=== PATIENT | female | born 1975 | race Caucasian/White ===

== ENCOUNTER 2016-05-31 20:35 | Emergency (ER) | payer OTHER ==
[2016-05-31 20:43] VITALS: BP 165/77; PULSE 93; TEMP 98.3; BMI 39.4
[2016-05-31 20:58] LABS: BASOPHIL 0.4 % (0-2.0); EOSINOPHIL 1.4 % (0-4.5); MCH 29.7 pg (25.7-33.7); MCHC 34.2 g/dl (32.0-36.0); MEAN PLT VOLUME 8.4 fl (7.5-11.1); NEUTROPHILS 70.4 % (42.8-82.8); PLATELET COUNT 248 K/MM3 (134-434); RDW 14.1 % (11.6-15.6); WHITE BLOOD COUNT 9.7 K/mm3 (4.0-10.0)
[2016-05-31 21:03] LABS: URINE APPEARANCE CLEAR; URINE BILIRUBIN NEGATIVE (NEGATIVE); URINE COLOR STRAW; URINE GLUCOSE (UA) NEGATIVE (NEGATIVE); URINE KETONE NEGATIVE (NEGATIVE); URINE LEUK ESTERASE NEGATIVE (NEGATIVE); URINE NITRITE NEGATIVE (NEGATIVE); URINE PROTEIN NEGATIVE (NEGATIVE); URINE UROBILINOGEN NEGATIVE E.U./dl (0.2-1.0)
[2016-05-31 21:10] LABS: URINE BLOOD 3+ (NEGATIVE)
[2016-05-31 21:12] LABS: URINE MUCUS RARE; URINE RBC 33 /hpf (0-3); URINE WBC 5 /hpf (3-5)
[2016-05-31 21:24] LABS: CALCIUM 8.6 mg/dL (8.5-10.1); COCKROFT - GAULT 251.2515; CREATININE 0.5 mg/dL (0.55-1.02)
--- NOTE | 2016-05-31 22:19 | PDOC ---
History of Present Illness - History of Present Illness Initial Comments: 05/31/16 22:31 The patient is a 40 year old 13 week female with a past medical hx of who presents to the ED complaining of vaginal bleeding for a few hours. She reports associated lower abdominal pain. The patient reports she noticed some blood when she was using the bathroom. She describes the bleeding as spotting and denies a copious amount of blood. The patient reports she was seen in [facility] ED 20 days ago for the same complaint. She was fully worked up there and everything was unremarkable. She states she had vaginal bleeding like this in one of her previous pregnancies and the baby was fine. Her next OB appointment is on the 23 of June. The patient denies nausea, vomiting, diarrhea, chest pain, SOB. OB: Dr. Madden <Agustina Olvera - Last Filed: 06/01/16 00:24> - General History Source: Patient Exam Limitations: No Limitations <Hilda Hermosillo - Last Filed: 06/06/16 16:58> - General Chief Complaint: Vaginal Bleeding Stated Complaint: 13WKS/VAGINAL BLEEDING Time Seen by Provider: 05/31/16 20:38 Past History <Agustina Olvera - Last Filed: 06/01/16 00:24> - Psycho/Social/Smoking Cessation Hx Suicidal Ideation: No Smoking History: Never smoked Have you smoked in the past 12 months: No Information on smoking cessation initiated: No Hx Alcohol Use: No Drug/Substance Use Hx: No <Hilda Hermosillo - Last Filed: 06/06/16 16:58> - Past Medical History Allergies/Adverse Reactions: Allergies Allergy/AdvReac Type Severity Reaction Status Date / Time No Known Allergies Allergy Verified 05/31/16 20:41 Home Medications: Ambulatory Orders 19 Tablet 1 cap PO DAILY 05/31/16 Review of Systems - Review of Systems Able to Perform ROS?: Yes Comments:: 05/31/16 22:32 GENERAL/CONSTITUTIONAL: No: fever, chills, weakness, loss of appetite. HEAD, EYES, EARS, NOSE AND THROAT: No: change in vision, ear pain, discharge, sore throat, throat swelling. CARDIOVASCULAR: No: chest pain, lightheadedness, palpitations, syncope RESPIRATORY: No: cough, shortness of breath, wheezing, hemoptysis, stridor. GASTROINTESTINAL:+Abdominal pain. No: nausea, vomiting, diarrhea, rectal bleeding, constipation. GENITOURINARY: +Vaginal bleeding. No: dysuria, hematuria, frequency, urgency, flank pain. MUSCULOSKELETAL: No: back pain, neck pain, joint pain, muscle swelling or pain SKIN: No: lesions, pallor, rash or easy bruising. NEUROLOGIC: No: headache, vertigo, paresthesias, weakness ENDOCRINE: No: unexplained weight gain or loss HEMATOLOGIC/LYMPHATIC: No: anemia, easy bleeding, swelling nodes <Agustina Olvera - Last Filed: 06/01/16 00:24> *Physical Exam - Vital Signs Last Vital Signs Temp Pulse Resp BP Pulse Ox 98.3 F 93 H 20 165/77 96 05/31/16 20:41 05/31/16 20:41 05/31/16 20:41 05/31/16 20:41 05/31/16 20:41 - Physical Exam Comments: 05/31/16 22:32 GENERAL: The patient is in no acute distress. HEAD: Normal with no signs of trauma. EYES: PERRLA, EOMI, sclera anicteric, conjunctiva clear. ENT: Ears normal, nares patent, oropharynx clear without exudates. Moist mucous membranes. NECK: Normal range of motion, supple without lymphadenopathy, JVD, or masses. LUNGS: Breath sounds equal, clear to auscultation bilaterally. No wheezes, and no crackles. HEART:Regular rate and rhythm, normal S1 and S2 without murmur, rub or gallop. ABDOMEN: Soft, nontender, normoactive bowel sounds. No guarding, no rebound. PELVIC: OS closed, scant blood in vaginal vault, no adnexal tenderness or fullness. EXTREMITIES: Normal range of motion, no edema. No clubbing or cyanosis. No erythema, or tenderness. NEUROLOGICAL: Cranial nerves II through XII grossly intact. Normal speech. No focal neurological deficits. MUSCULOSKELETAL: Back nontender to palpation, no CVA tenderness SKIN: Warm, Dry, normal turgor, no rashes or lesions noted. <Agustina Olvera - Last Filed: 06/01/16 00:24> - Vital Signs Last Vital Signs Temp Pulse Resp BP Pulse Ox 98.3 F 93 H 20 165/77 96 05/31/16 20:41 05/31/16 20:41 05/31/16 20:41 05/31/16 20:41 05/31/16 20:41 <Hilda Hermosillo - Last Filed: 06/06/16 16:58> ED Treatment Course - LABORATORY CBC & Chemistry Diagram: 05/31/16 20:50 05/31/16 20:50 - ADDITIONAL ORDERS Additional order review: Laboratory Results 05/31/16 05/31/16 05/31/16 20:50 20:50 20:50 Sodium 139 Cancelled Potassium 3.9 Cancelled Chloride 107 Cancelled Carbon Dioxide 22 Cancelled Anion Gap 10 Cancelled BUN 12 Cancelled Creatinine 0.5 L Cancelled Random Glucose 99 Cancelled Calcium 8.6 Cancelled Beta HCG, Quant 90080.3 Urine Color Urine Appearance Urine pH Ur Specific Lowes Urine Protein Urine Glucose (UA) Urine Ketones Urine Blood Urine Nitrite Urine Bilirubin Urine Urobilinogen Ur Leukocyte Esterase Urine RBC Urine WBC Ur Epithelial Cells Urine Mucus Blood Type Cancelled Antibody Screen Cancelled Spec Expiration Date Cancelled 05/31/16 20:50 Sodium Potassium Chloride Carbon Dioxide Anion Gap BUN Creatinine Random Glucose Calcium Beta HCG, Quant Urine Color Straw Urine Appearance Clear Urine pH 6.0 Ur Specific Lowes 1.012 Urine Protein Negative Urine Glucose (UA) Negative Urine Ketones Negative Urine Blood 3+ H Urine Nitrite Negative Urine Bilirubin Negative Urine Urobilinogen Negative Ur Leukocyte Esterase Negative Urine RBC 33 Urine WBC 5 Ur Epithelial Cells Rare Urine Mucus Rare Blood Type Antibody Screen Spec Expiration Date 05/31/16 20:50 RBC 4.19 MCV 87.0 MCHC 34.2 RDW 14.1 MPV 8.4 Neutrophils % 70.4 Lymphocytes % 22.7 Monocytes % 5.1 Eosinophils % 1.4 Basophils % 0.4 - RADIOLOGY Radiograph Interpretation: 06/01/16 00:24 EXAM: Ultrasound , first trimester and pelvic duplex IMAGES: 44 INDICATION: Vaginal bleeding while approximately 14 weeks DATE OF SERVICE: 2016-05-31 22:57:14.0 COMPARISON: none FINDINGS: Ultrasound :Uterus is anteverted and measures 13.5centimeters in length. There is a single live IUP with estimated gestational age of 14weeks and 3days. There is a normal heart rate of 149beats per minute. There is no subchorionic bleed. 8 x 5 x 6 mm anterior fundal submucosal fibroid is noted. The right ovary measures 3.7centimeters in length and contains a 2.4 cm cyst, possibly a corpus luteum. The left ovary measures 3.9centimeters in length and appears normal. There is no significant free fluid. Pelvic duplex: There is normal arterial flow in both ovaries. IMPRESSION: Live IUP with estimated age of 14 weeks 3 days, significant abnormalities. THIS DOCUMENT HAS BEEN ELECTRONICALLY SIGNED Jose Benton MD 06/01/2016 00:17 EST <Agustina Olvera - Last Filed: 06/01/16 00:24> - LABORATORY CBC & Chemistry Diagram: 05/31/16 20:50 05/31/16 20:50 - ADDITIONAL ORDERS Additional order review: Laboratory Results 05/31/16 05/31/16 05/31/16 20:50 20:50 20:50 Sodium 139 Cancelled Potassium 3.9 Cancelled Chloride 107 Cancelled Carbon Dioxide 22 Cancelled Anion Gap 10 Cancelled BUN 12 Cancelled Creatinine 0.5 L Cancelled Random Glucose 99 Cancelled Calcium 8.6 Cancelled Beta HCG, Quant 41626.3 Urine Color Urine Appearance Urine pH Ur Specific Lowes Urine Protein Urine Glucose (UA) Urine Ketones Urine Blood Urine Nitrite Urine Bilirubin Urine Urobilinogen Ur Leukocyte Esterase Urine RBC Urine WBC Ur Epithelial Cells Urine Mucus Blood Type Cancelled Antibody Screen Cancelled Spec Expiration Date Cancelled 05/31/16 20:50 Sodium Potassium Chloride Carbon Dioxide Anion Gap BUN Creatinine Random Glucose Calcium Beta HCG, Quant Urine Color Straw Urine Appearance Clear Urine pH 6.0 Ur Specific Lowes 1.012 Urine Protein Negative Urine Glucose (UA) Negative Urine Ketones Negative Urine Blood 3+ H Urine Nitrite Negative Urine Bilirubin Negative Urine Urobilinogen Negative Ur Leukocyte Esterase Negative Urine RBC 33 Urine WBC 5 Ur Epithelial Cells Rare Urine Mucus Rare Blood Type Antibody Screen Spec Expiration Date 05/31/16 20:50 RBC 4.19 MCV 87.0 MCHC 34.2 RDW 14.1 MPV 8.4 Neutrophils % 70.4 Lymphocytes % 22.7 Monocytes % 5.1 Eosinophils % 1.4 Basophils % 0.4 <Hilda Hermosillo - Last Filed: 06/06/16 16:58> Medical Decision Making - Medical Decision Making This is a approximately 13 weeks presenting to the Er with a complaint of vaginal bleeding and lower abdominal pain bleeding began today (+) spotting mild lower abdominal pain on examination: OS closed No blood in vaginal vault, pink tinged vaginal fluid No adnexal tenderness or fullness 05/31/16 22:21 Laboratory Tests 05/31/16 05/31/16 05/31/16 20:50 20:50 20:50 WBC 9.7 Hgb 12.5 Hct 36.5 Plt Count 248 Beta HCG, Quant 96028.3 Urine Blood 3+ H Urine Nitrite Negative Ur Leukocyte Esterase Negative Urine RBC 33 Urine WBC 5 Awaiting transvaginal US 06/01/16 00:20 Tansvaginal US: Single live IUP 14 weeks and 3 days, FHR: 149 bpm no subchorianic bleeding (+) fibroid No free fluid Pt initially placed as discharged I have reviewed this patient's labs again Blood type was cancelled I was not notified of this Attempt made to find patient She was already discharged 06/06/16 16:52 Calls placed to all phone numbers in the system unable to reach this patient to ask her to get her blood type tested One number repeatedly goes to voicemail Another phone number, a woman answered the phone and said I had the wrong number Clinical impression: threatened AB <Hilda Hermosillo - Last Filed: 06/06/16 16:58> *DC/Admit/Observation/Transfer - Attestations Scribe Attestion: 05/31/16 22:33 Documentation prepared by Agustina Olvera, acting as medical records coder for Hilda Hermosillo MD/DO. <Agustina Olvera - Last Filed: 06/01/16 00:24> - Discharge Dispostion Admit: No <Hilda Hermosillo - Last Filed: 06/06/16 16:58> Diagnosis at time of Disposition: Threatened affecting intrauterine - Discharge Dispostion Disposition: HOME Condition at time of disposition: Stable - Referrals Referrals: Ayad Madden MD [Staff Physician] - - Patient Instructions Printed Discharge Instructions: DI for Vaginal Bleeding During , Vaginal Bleeding During Additional Instructions: Thank you for coming in to the ER Please return to the ER for heavy bleeding, saturating 2 pads per hour for 2 hours, severe lower abdominal pain, any other concerns or complaints Please follow up with your lending manager for your regularly scheduled visit Print Language: GEORGIAN
== END 2016-06-01 00:28 | disposition home or self-care (01) ==
LOC: JER 20:35
DX: O20.0 Threatened abortion (principal); O34.12 Maternal care for benign tumor of corpus uteri, second trimester; D25.9 Leiomyoma of uterus, unspecified; Z3A.14 14 weeks gestation of pregnancy
CPT/HCPCS: 36415; 76801-TC; 80048; 81003; 81015; 84702; 85025; 87086; 99283-25

== ENCOUNTER 2016-06-13 11:17 | Emergency (ER) | payer OTHER ==
[2016-06-13 11:27] VITALS: BMI 34.3
[2016-06-13 12:11] LABS: BASOPHIL 0.3 % (0-2.0); EOSINOPHIL 0.8 % (0-4.5); MCH 29.4 pg (25.7-33.7); MCHC 33.7 g/dl (32.0-36.0); MEAN CELL VOLUME 87.2 fl (80-96); NEUTROPHILS 73.9 % (42.8-82.8); PLATELET COUNT 244 K/MM3 (134-434); RDW 14.2 % (11.6-15.6)
--- NOTE | 2016-06-13 12:14 | PDOC ---
History of Present Illness - General History Source: Patient Exam Limitations: No Limitations - History of Present Illness Initial Comments: 06/13/16 12:29 The patient is a 40-year-old woman , currently approximately 15 weeks , with no past medical history who was advised to present to the emergency department by her General Laborer Dr. Ayad Madden, for further evaluation of an abnormal outpatient ultrasound today. As per patient, she underwent an obstetrics ultrasound in which a heart rate was not appreciated. Upon interview, she admits that she has been experiencing scant vaginal bleeding for the past week. She denies noting any clots. She also reports associated symptoms of intermittent left sided abdominal pain, described as a cramping sensation that is worse when she sneezes. No other complaints. No fever, chills, nausea, vomiting, diarrhea. No urinary complaints. Allergies: No Known Drug Allergies Past Surgical History: Caesarian Section x3 Social History: No tobacco, EtOH and recreational drug use. General Laborer: Dr. Ayad Madden <Marti Cruz - Last Filed: 06/13/16 14:11> <Paola Workman - Last Filed: 06/13/16 14:13> - General Chief Complaint: Vaginal Bleeding Stated Complaint: (PCP SENT) 3 WKS Time Seen by Provider: 06/13/16 11:34 Past History <Marti Cruz - Last Filed: 06/13/16 14:11> - Surgical History Appendectomy: Yes - Immunization History Immunization Up to Date: Yes - Psycho/Social/Smoking Cessation Hx Anxiety: No Suicidal Ideation: No Smoking History: Never smoked Have you smoked in the past 12 months: No Information on smoking cessation initiated: No Hx Alcohol Use: No Drug/Substance Use Hx: No Substance Use Type: None <Paola Workman - Last Filed: 06/13/16 14:13> - Past Medical History Allergies/Adverse Reactions: Allergies Allergy/AdvReac Type Severity Reaction Status Date / Time No Known Allergies Allergy Verified 06/13/16 11:21 Home Medications: Ambulatory Orders Pnv No.122/Iron/Folic Acid [ Multi Tablet] 1 each PO DAILY 06/13/16 Review of Systems - Review of Systems Able to Perform ROS?: Yes Comments:: 06/13/16 12:29 GENERAL/CONSTITUTIONAL: No fever or chills. No weakness. HEAD, EYES, EARS, NOSE AND THROAT: No change in vision. No ear pain or discharge. No sore throat. CARDIOVASCULAR: No chest pain or shortness of breath. RESPIRATORY: No cough, wheezing, or hemoptysis. GASTROINTESTINAL: Yes: +Abdominal Pain. No nausea, vomiting, diarrhea or constipation. GENITOURINARY: Yes: +Vaginal Bleeding. No dysuria, frequency, or change in urination. MUSCULOSKELETAL: No joint or muscle swelling or pain. No neck or back pain. SKIN: No rash NEUROLOGIC: No headache, vertigo, loss of consciousness, or change in strength/ sensation. ENDOCRINE: No increased thirst. No abnormal weight change. HEMATOLOGIC/LYMPHATIC: No anemia, easy bleeding, or history of blood clots. ALLERGIC/IMMUNOLOGIC: No hives or skin allergy. <Marti Cruz - Last Filed: 06/13/16 14:11> *Physical Exam - Vital Signs Last Vital Signs Temp Pulse Resp BP Pulse Ox 97.7 F 79 18 122/87 98 06/13/16 11:21 06/13/16 11:21 06/13/16 11:21 06/13/16 11:21 06/13/16 11:21 - Physical Exam Comments: 06/13/16 12:29 GENERAL: Awake, alert, and fully oriented, in no acute distress HEAD: No signs of trauma EYES: PERRLA, EOMI, sclera anicteric, conjunctiva clear ENT: Auricles normal inspection, hearing grossly normal, nares patent, oropharynx clear without exudates. Moist mucosa NECK: Normal ROM, supple, no lymphadenopathy, JVD, or masses LUNGS: Breath sounds equal, clear to auscultation bilaterally. No wheezes, and no crackles HEART: Regular rate and rhythm, normal S1 and S2, no murmurs, rubs or gallops ABDOMEN: Gravid uterus, nontender, normoactive bowel sounds. No guarding, no rebound. No masses EXTREMITIES: Normal range of motion, no edema. No clubbing or cyanosis. No cords, erythema, or tenderness NEUROLOGICAL: Cranial nerves II through XII grossly intact. Normal speech <Marti Cruz - Last Filed: 06/13/16 14:11> - Vital Signs Last Vital Signs Temp Pulse Resp BP Pulse Ox 97.7 F 79 18 122/87 98 06/13/16 11:21 06/13/16 11:21 06/13/16 11:21 06/13/16 11:21 06/13/16 11:21 - Physical Exam Comments: : No external lesions. Trace blood-tinged physiologic discharge in the vault. No CMT, no adnexal tenderness. Os closed. <Paola Workman - Last Filed: 06/13/16 14:13> ED Treatment Course - LABORATORY CBC & Chemistry Diagram: 06/13/16 12:00 06/13/16 12:00 - ADDITIONAL ORDERS Additional order review: 06/13/16 12:00 RBC 4.24 MCV 87.2 MCHC 33.7 RDW 14.2 MPV 8.0 Neutrophils % 73.9 Lymphocytes % 20.5 Monocytes % 4.5 Eosinophils % 0.8 Basophils % 0.3 - RADIOLOGY Radiograph Interpretation: 06/13/16 14:12 EXAM: US/ US(SINGLE) IMPRESSION: The uterus is gravid with a single intrauterine fetus seen. Average sonographic gestational age is 16 weeks 2 days. Estimated weight is 155 g. heart rate is 145 bpm. There is no evidence of hydrocephalus. The amount of amniotic fluid is within normal limits. Placenta is anterior and it appears unremarkable. Uterine cervix is closed measuring 4.1 cm in sagittal length <Marti Cruz - Last Filed: 06/13/16 14:11> - LABORATORY CBC & Chemistry Diagram: 06/13/16 12:00 06/13/16 12:00 <Paola Workman - Last Filed: 06/13/16 14:13> *DC/Admit/Observation/Transfer - Attestations Scribe Attestion: 06/13/16 12:29 Documentation prepared by Marti Cruz, acting as medical record technician for Paola Workman MD. <Marti Cruz - Last Filed: 06/13/16 14:11> - Discharge Dispostion Admit: No <Paola Workman - Last Filed: 06/13/16 14:13> Diagnosis at time of Disposition: Qualifiers: Weeks of gestation: 16 weeks Qualified Code(s): Z3A.16 - 16 weeks gestation of - Discharge Dispostion Disposition: HOME Condition at time of disposition: Stable - Referrals Referrals: Ayad Madden MD [Primary Care Provider] - - Patient Instructions Printed Discharge Instructions: DI for -- Discomforts and Remedies
[2016-06-13 12:28] LABS: URINE APPEARANCE CLEAR; URINE BILIRUBIN NEGATIVE (NEGATIVE); URINE COLOR COLORLESS; URINE GLUCOSE (UA) NEGATIVE (NEGATIVE); URINE KETONE NEGATIVE (NEGATIVE); URINE NITRITE NEGATIVE (NEGATIVE); URINE PROTEIN NEGATIVE (NEGATIVE); URINE UROBILINOGEN NEGATIVE E.U./dl (0.2-1.0)
[2016-06-13 12:34] LABS: ALBUMIN 3.2 g/dl (3.4-5.0); ANION GAP 9 (8-16); BILIRUBIN,TOTAL 0.3 mg/dL (0.2-1.0); CALCIUM 9.2 mg/dL (8.5-10.1); CO2 21 mmol/L (21-32); CREATININE 0.4 mg/dL (0.55-1.02); GLUCOSE,RANDOM 91 mg/dL (74-106); SGOT/AST 26 U/L (15-37); SGPT/ALT 32 U/L (12-78); TOT PROT 6.8 g/dl (6.4-8.2); URINE BLOOD 2+ (NEGATIVE); URINE LEUK ESTERASE TRACE (NEGATIVE)
[2016-06-13 12:36] LABS: URINE RBC <1 /hpf (0-3); URINE WBC 1 /hpf (3-5)
[2016-06-13 12:51] LABS: ALK PHOS 60 U/L (45-117)
[2016-06-13 14:48] VITALS: BP 129/89; PULSE 82; TEMP 98.2
== END 2016-06-13 14:47 | disposition home or self-care (01) ==
LOC: JER 11:17
DX: O26.892 Other specified pregnancy related conditions, second trimester (principal); Z3A.16 16 weeks gestation of pregnancy
CPT/HCPCS: 36415; 76801-TC; 80053; 81003; 81015; 84702; 85025; 86850; 86900; 86901; 99283-25

== ENCOUNTER 2018-03-08 10:49 | Emergency (ER) | payer SELFPAY ==
[2018-03-08 10:55] VITALS: TEMP 97.9; BMI 34.3
--- NOTE | 2018-03-08 12:20 | PDOC ---
History of Present Illness - General Chief Complaint: Pain, Acute Stated Complaint: ABD PAIN Time Seen by Provider: 03/08/18 11:41 History Source: Patient Exam Limitations: No Limitations - History of Present Illness Travel History: No Initial Comments: 03/08/18 11:41 42-year-old female presents to ED with complaints of left lower lower achy pain for the past 2-3 days without nausea vomiting diarrhea fever, chills urinary complaints of abdominal distention diarrhea, recent injury. Patient also denies any vaginal discharge or irregular menses and has history of partial hysterectomy. Timing/Duration: reports: constant, getting worse Quality: reports: moderate, cramping Abdominal Pain Onset Location: reports: suprapubic (left) Pain Radiation: reports: no radiation Activities at Onset: reports: none Aggravating Factors: improves with: Movement Alleviating Factors: improves with: None Past History - Travel Traveled outside of the country in the last 30 days: No Close contact w/someone who was outside of country & ill: No - Past Medical History Allergies/Adverse Reactions: Allergies Allergy/AdvReac Type Severity Reaction Status Date / Time No Known Allergies Allergy Verified 03/08/18 10:52 Home Medications: Ambulatory Orders No122/Iron/Folic Acid [ Multi Tablet] 1 each PO DAILY 06/13/16 Gabapentin 300 mg PO TID 03/08/18 Levofloxacin [Levaquin] 750 mg PO DAILY #5 tablet 03/08/18 Oxycodone HCl/Acetaminophen [Percocet 5-325 mg Tablet] 1 - 2 tab PO Q6H PRN #12 tab MDD 4 03/08/18 metroNIDAZOLE [Flagyl -] 500 mg PO BID #10 tablet 03/08/18 COPD: No - Surgical History Appendectomy: Yes - Immunization History Immunization Up to Date: Yes - Suicide/Smoking/Psychosocial Hx Smoking History: Never smoked Have you smoked in the past 12 months: No Hx Alcohol Use: No Drug/Substance Use Hx: No Substance Use Type: None Patient Lives Alone: No Lives with/in: spouse/SO Abd/GI Specific PMHX - Complaint Specific PMHX Colitis: No Diverticulitis: No Review of Systems - Review of Systems Able to Perform ROS?: Yes Constitutional: No: Symptoms Reported HEENTM: No: Symptoms Reported Respiratory: No: Symptoms reported Cardiac (ROS): No: Symptoms Reported ABD/GI: Yes: Abdominal cramping : No: Symptoms Reported Musculoskeletal: No: Symptoms Reported Integumentary: No: Symptoms Reported Neurological: No: Symptoms reported Hematologic/Lymphatic: No: Symptoms Reported *Physical Exam - Vital Signs Last Vital Signs Temp Pulse Resp BP Pulse Ox 97.9 F 98 H 18 139/83 98 03/08/18 10:54 03/08/18 10:54 03/08/18 10:54 03/08/18 10:54 03/08/18 10:54 - Physical Exam General Appearance: Yes: Nourished, Appropriately Dressed. No: Apparent Distress HEENT: positive: EOMI. negative: Pale Conjunctivae Neck: positive: Supple Respiratory/Chest: positive: Lungs Clear, Normal Breath Sounds. negative: Respiratory Distress, Accessory Muscle Use Cardiovascular: positive: Regular Rhythm, Regular Rate. negative: Murmur Female Pelvic Exam: positive: normal external exam. negative: discharge, vaginal bleeding Gastrointestinal/Abdominal: positive: Soft, Tenderness (left suprapubc/ mid suprapubic) Extremity: positive: Normal Inspection, Normal Range of Motion Integumentary: positive: Normal Color, Warm, Moist Neurologic: positive: Motor Strength 5/5 (ambulatory) Moderate Sedation - Procedure Monitoring Vital Signs: Procedure Monitoring Vital Signs Temperature 97.9 F 03/08/18 10:54 Pulse Rate 98 H 03/08/18 10:54 Respiratory Rate 18 03/08/18 10:54 Blood Pressure 139/83 03/08/18 10:54 O2 Sat by Pulse Oximetry (%) 98 03/08/18 10:54 ED Treatment Course - LABORATORY CBC & Chemistry Diagram: 03/08/18 17:20 03/08/18 17:20 - RADIOLOGY Radiology Studies Ordered: Category Date Time Status PELVIC / BLADDER US [US] Stat Ultrasound 03/08/18 12:03 Ordered TRANSVAGINAL ULTRASOUND US [US] Stat Ultrasound 03/08/18 12:03 Ordered Medical Decision Making - Medical Decision Making 03/08/18 12:28 Pt c/o: left lower abd pain x 2-3 days, no other complaints On exam: left and mid suprapubic pain Plan: ua , ucx, ultrasound 03/08/18 16:01 Ultrasound shows status post hysterectomy with right ovarian cyst measuring 2.4 x 2.2 cm with internal echoes compatible with a complex cyst. Left ovarian poorly visualized likely complex cyst measuring 3.4 x 2.6 cm. Follow-up pelvis ultrasound is recommended within 1 month to determine evaluation. She states feeling better after receiving Percocet. I've explained to patient to change and wait for CT results and will give referral to a TITLE COORDINATOR 03/08/18 16:01 Laboratory Tests 03/08/18 12:20 Urine Blood 2+ H Ur Leukocyte Esterase Negative Urine WBC (Auto) 2 Urine RBC (Auto) 6 03/08/18 17:45 CT shows concentric pericolonic edema in relation to the middle third of the sigmoid colon. No obvious colonic diverticulosis is seen. The inflamed midsigmoid colon and straight over to continuous 5 cm 4 cm left ovarian cyst questionable source of inflammation rather than sigmoid colon. Slightly more laterally no is made of a nonspecific 5 x 2 70 anon fluid collection possibly representing abscess versus fluid collection due to cyst rupture. Clinical/ laboratory correlation suggested and close follow-up CT if surgery is deferred at this time. There is no evidence of urolithiasis or hydronephrosis. 03/08/18 18:14 Laboratory Tests 03/08/18 03/08/18 17:20 17:20 WBC 9.5 Hgb 13.5 Hct 39.4 Plt Count 251 Absolute Neuts (auto) 7.1 Neutrophils % 74.9 Sodium 138 Potassium 3.8 Chloride 107 Carbon Dioxide 24 Anion Gap 7 L BUN 11 Creatinine 0.6 Creat Clearance w eGFR > 60 Random Glucose 102 Calcium 8.2 L Total Bilirubin 0.4 AST 26 ALT 44 Alkaline Phosphatase 96 Total Protein 7.2 Albumin 3.6 *DC/Admit/Observation/Transfer Diagnosis at time of Disposition: Ovarian cyst - Discharge Dispostion Disposition: HOME Condition at time of disposition: Good - Prescriptions Prescriptions: Levofloxacin [Levaquin] 750 mg PO DAILY #5 tablet metroNIDAZOLE [Flagyl -] 500 mg PO BID #10 tablet Oxycodone HCl/Acetaminophen [Percocet 5-325 mg Tablet] 1 - 2 tab PO Q6H PRN #12 tab MDD 4 PRN Reason: Pain - Referrals Referrals: Monik Membreno MD [Staff Physician] - - Patient Instructions Printed Discharge Instructions: DI for Ovarian Cyst Additional Instructions: Please take Percocet as needed for pain, apply heating pad to the affected area , and follow up with referred TITLE COORDINATOR. Please take antibiotics as prescribed - Post Discharge Activity
[2018-03-08] MEDS ORDERED: ACETAMINOPHEN 325 MG TABLET (FP) PO ONE (12:29)
[2018-03-08 12:35] LABS: URINE APPEARANCE SLCLOUDY; URINE BILIRUBIN NEGATIVE (<2.0 mg/dL); URINE COLOR YELLOW; URINE GLUCOSE (UA) NEGATIVE (NEGATIVE); URINE KETONE NEGATIVE (NEGATIVE); URINE LEUK ESTERASE NEGATIVE (NEGATIVE); URINE NITRITE NEGATIVE (NEGATIVE); URINE PROTEIN NEGATIVE (NEGATIVE); URINE UROBILINOGEN NEGATIVE mg/dL (0.2-1.0)
[2018-03-08 12:41] LABS: EPI CELLS FEW /HPF (FEW); URINE MUCUS FEW
[2018-03-08] MEDS ORDERED: ACETAMINOPHEN 325 MG TABLET (FP) ONE (12:58)
[2018-03-08 17:49] LABS: BASO % 0.2 % (0-2.0); EOS % 1.1 % (0-4.5); HEMATOCRIT 39.4 % (32.4-45.2); HEMOGLOBIN 13.5 GM/dL (10.7-15.3); LYMPH % 18.2 % (8-40); MCHC 34.1 g/dl (32.0-36.0); MEAN CELL VOLUME 87.8 fl (80-96); MEAN PLT VOLUME 8.6 fl (7.5-11.1); MONO % 5.6 % (3.8-10.2); NEUT % 74.9 % (42.8-82.8); PLATELET COUNT 251 K/MM3 (134-434); RBC 4.49 M/mm3 (3.60-5.2); WHITE BLOOD COUNT 9.5 K/mm3 (4.0-10.0)
[2018-03-08 17:58] LABS: ALBUMIN 3.6 g/dl (3.4-5.0); ALK PHOS 96 U/L (45-117); ANION GAP 7 MMOL/L (8-16); BILIRUBIN,TOTAL 0.4 mg/dL (0.2-1); BLOOD UREA NITROGEN 11 mg/dL (7-18); CALCIUM 8.2 mg/dL (8.5-10.1); CHLORIDE 107 mmol/L (98-107); CO2 24 mmol/L (21-32); CREATININE 0.6 mg/dL (0.55-1.3); GLUCOSE,RANDOM 102 mg/dL (74-106); POTASSIUM 3.8 mmol/L (3.5-5.1); SGOT/AST 26 U/L (15-37); SGPT/ALT 44 U/L (13-61); SODIUM 138 mmol/L (136-145); TOT PROT 7.2 g/dl (6.4-8.2)
[2018-03-08 18:33] VITALS: BP 133/82; PULSE 104
== END 2018-03-08 18:33 | disposition home or self-care (01) ==
LOC: JER 10:49
DX: N83.202 Unspecified ovarian cyst, left side (principal); N83.201 Unspecified ovarian cyst, right side; Z90.710 Acquired absence of both cervix and uterus
CPT/HCPCS: 36415; 74176; 76830-TC; 76856-TC; 80053; 81003; 81015; 83605; 85025; 87086; 99282-25

== ENCOUNTER 2021-10-01 08:06 | Emergency (ER) | payer OTHER ==
[2021-10-01 08:16] VITALS: BP 131/80; PULSE 84; RESP 18; TEMP 97; BMI 34.3
[2021-10-01 11:40] LABS: BASO % 0.6 % (0-2.0); EOS % 1.5 % (0-4.5); HEMATOCRIT 40.8 % (32.4-45.2); HEMOGLOBIN 13.7 GM/dL (10.7-15.3); LYMPH % 25.5 % (8-40); MCH 29.5 pg (25.7-33.7); MCHC 33.5 g/dl (32.0-36.0); MEAN CELL VOLUME 88.1 fl (80-96); MEAN PLT VOLUME 8.2 fl (7.5-11.1); MONO % 4.9 % (3.8-10.2); NEUT % 67.5 % (42.8-82.8); PLATELET COUNT 280 10^3/uL (134-434); RBC 4.63 M/mm3 (3.60-5.2); RDW 14.3 % (11.6-15.6); WHITE BLOOD COUNT 6.8 K/mm3 (4.0-10.0)
[2021-10-01 11:43] LABS: EPI CELLS >36 /uL (0-25.1); HYALINE CASTS 5 /uL (0-3.1); PH,URINE 5.5 (5.0-8.0); URINE APPEARANCE CLEAR; URINE BACTERIA 738 /uL (0-1359); URINE BILIRUBIN NEGATIVE (NEGATIVE); URINE COLOR YELLOW; URINE GLUCOSE (UA) NEGATIVE (NEGATIVE); URINE KETONE NEGATIVE (NEGATIVE); URINE LEUK ESTERASE NEGATIVE (NEGATIVE); URINE NITRITE NEGATIVE (NEGATIVE); URINE PROTEIN NEGATIVE (NEGATIVE); URINE RBC 106 /uL (0-23.9); URINE UROBILINOGEN 0.2 mg/dL (0.2-1.0); URINE WBC 50 /uL (0-25.8)
[2021-10-01 12:07] LABS: CALCIUM 9.1 mg/dL (8.5-10.1)
[2021-10-01 12:08] LABS: ALBUMIN 3.7 g/dl (3.4-5.0); BLOOD UREA NITROGEN 13.1 mg/dL (7-18)
[2021-10-01 12:11] LABS: CREATININE 0.6 mg/dL (0.55-1.3)
[2021-10-01 12:13] LABS: BILIRUBIN,TOTAL 0.4 mg/dL (0.2-1); TOT PROT 7.3 g/dl (6.4-8.2)
== END 2021-10-01 13:03 | disposition home or self-care (01) ==
LOC: JER 08:06
DX: L03.311 Cellulitis of abdominal wall (principal)
CPT/HCPCS: 36415; 80053; 81003; 85025; 87086; 99283-25

== ENCOUNTER 2022-04-29 11:41 | Emergency (ER) | payer OTHER ==
[2022-04-29 11:54] VITALS: TEMP 97.9; BMI 41.5
[2022-04-29] MEDS ORDERED: METOCLOPRAMIDE HCL INJECTION 10 MG/2 ML VIAL IVPUSH ONE (13:18)
[2022-04-29] MEDS ORDERED: SODIUM CHLORIDE 0.9% 1000 ML INFUS.BAG IV ONE ×2 (13:18→13:36)
[2022-04-29] MEDS ORDERED: FLUORESCEIN NA 1 EA STRIP OS ONE (13:19)
[2022-04-29] MEDS ORDERED: TETRACAINE 0.5% OPHTH SOLN 2 ML BOTTLE OS ONE (13:19)
[2022-04-29] MEDS ORDERED: ACETAMINOPHEN 1000 MG/100 ML BAG IVPB ONE (13:19)
[2022-04-29] MEDS ORDERED: TETRACAINE 0.5% OPHTH SOLN 2 ML BOTTLE ONE (13:21)
[2022-04-29] MEDS ORDERED: FLUORESCEIN NA 1 EA STRIP ONE (13:21)
[2022-04-29] MEDS ORDERED: METOCLOPRAMIDE HCL INJECTION 10 MG/2 ML VIAL ONE (13:51)
[2022-04-29] MEDS ORDERED: ACETAMINOPHEN INJECTION 100 ML IVPB ONE (13:51)
[2022-04-29 15:00] LABS: BASO % 0.4 % (0-2.0); EOS % 2.2 % (0-4.5); HEMATOCRIT 40.8 % (32.4-45.2); HEMOGLOBIN 13.6 GM/dL (10.7-15.3); LYMPH % 28.8 % (8-40); MCH 28.7 pg (25.7-33.7); MCHC 33.3 g/dl (32.0-36.0); MEAN CELL VOLUME 86.1 fl (80-96); MEAN PLT VOLUME 8.1 fl (7.5-11.1); MONO % 5.3 % (3.8-10.2); NEUT % 63.3 % (42.8-82.8); PLATELET COUNT 296 10^3/uL (134-434); RBC 4.74 M/mm3 (3.60-5.2); RDW 14.3 % (11.6-15.6)
[2022-04-29 15:08] LABS: INR 1.11 (0.83-1.09); PROTHROMBIN TIME (PATIENT) 12.9 SEC (9.7-13.0)
[2022-04-29 15:11] LABS: ACTIVATED PTT 34.2 SECONDS (25.2-36.5)
[2022-04-29 15:14] LABS: CALCIUM 8.7 mg/dL (8.5-10.1)
[2022-04-29 15:15] LABS: ALBUMIN 3.8 g/dl (3.4-5.0); BLOOD UREA NITROGEN 11.6 mg/dL (7-18)
[2022-04-29 15:18] LABS: CREATININE 0.5 mg/dL (0.55-1.3)
[2022-04-29 15:20] LABS: BILIRUBIN,TOTAL 0.5 mg/dL (0.2-1); TOT PROT 7.6 g/dl (6.4-8.2)
[2022-04-29] MEDS ORDERED: ASPIRIN 81 MG CHEWABLE TABLETS PO ONE (15:34)
[2022-04-29 16:08] LABS: EPI CELLS 19 /uL (0-25.1); HYALINE CASTS 0 /uL (0-3.1); PH,URINE 5.5 (5.0-8.0); URINE APPEARANCE CLEAR; URINE BACTERIA 178 /uL (0-1359); URINE BILIRUBIN NEGATIVE (NEGATIVE); URINE COLOR YELLOW; URINE GLUCOSE (UA) NEGATIVE (NEGATIVE); URINE KETONE NEGATIVE (NEGATIVE); URINE LEUK ESTERASE NEGATIVE (NEGATIVE); URINE NITRITE NEGATIVE (NEGATIVE); URINE PROTEIN NEGATIVE (NEGATIVE); URINE RBC 19 /uL (0-23.9); URINE UROBILINOGEN 0.2 mg/dL (0.2-1.0); URINE WBC 7 /uL (0-25.8)
[2022-04-29] MEDS ORDERED: ACETAMINOPHEN 500 MG TABLET (FP) PO PRN (16:23)
[2022-04-29] MEDS ORDERED: oxyCODONE HCL 5 MG TABLET PO PRN (16:30)
[2022-04-29] MEDS ORDERED: ACETAMINOPHEN 325 MG TABLET (FP) PO PRN (16:30)
[2022-04-29] MEDS ORDERED: ASPIRIN 81 MG CHEWABLE TABLETS ONE (16:37)
[2022-04-29] MEDS ORDERED: AMOX TR/POT CLAV 875MG/125MG TABLETS (FP) ONE (16:37)
[2022-04-29 16:52] VITALS: BP 152/77; PULSE 72; RESP 16
[2022-04-29] MEDS ORDERED: AMOX TR/POT CLAV 875MG/125MG TABLETS (FP) PO SCH (17:30)
[2022-04-29] MEDS ORDERED: ATORVASTATIN CA 20 MG TABLET (FP) PO SCH (22:00)
[2022-04-30] MEDS ORDERED: ASPIRIN COATED 81 MG TABLET.EC PO SCH (10:00)
== END 2022-04-29 17:00 | disposition left against medical advice (07) ==
LOC: JER 11:41 → UNDOADMOB 16:14 → JERBED 16:14 → JER 17:00
PROC: 3E033NZ Introduction of Analgesics, Hypnotics, Sedatives into Peripheral Vein, Percutaneous Approach (ICD-10-PCS; principal; 2022-04-29)
PROC: 3E033GC Introduction of Other Therapeutic Substance into Peripheral Vein, Percutaneous Approach (ICD-10-PCS; 2022-04-29)
PROC: 3E033GC Introduction of Other Therapeutic Substance into Peripheral Vein, Percutaneous Approach (ICD-10-PCS; 2022-04-29)
DX: K02.9 Dental caries, unspecified (principal); R51.9 Headache, unspecified; H11.32 Conjunctival hemorrhage, left eye; R79.9 Abnormal finding of blood chemistry, unspecified; Z20.822 Contact with and (suspected) exposure to COVID-19
CPT/HCPCS: 0241U-QW; 36415; 70450-TC; 80053; 81003; 83690; 84484; 84703; 85025; 85610; 85730; 87086; 93005; 93010; 99285-25